=== PATIENT | female | born 1955 ===

== ENCOUNTER 2016-12-09 16:38 | Observation (INO) | payer SELFPAY ==
[2016-12-09 17:12] VITALS: RESP 16
[2016-12-09] MEDS ORDERED: Sodium Chloride 0.9% 1,000 ML IV STA (17:47)
[2016-12-09] MEDS ORDERED: Iohexol 240 (50 ml) PO ONE (17:58)
--- NOTE | 2016-12-09 18:10 | ED PDOC ---
HPI: Abdomen Time Seen by Provider: 12/09/16 17:45 Chief Complaint (Nursing): GI Problem Chief Complaint (Provider): GI Problem History Per: Patient History/Exam Limitations: no limitations Onset/Duration Of Symptoms: Days (x2 weeks ) Outside of [place] travel?: Yes Other Location:: [place] Current Symptoms Are (Timing): Still Present Associated Symptoms: Vomiting, Diarrhea Additional Complaint(s): Sravani Delgadillo is a 61 year old female, with a past medical history of hypertension and diabetes, who presents to the emergency department complaining of vomit and diarrhea onset for 2 weeks. She reports fever, chills, diarrhea, lightheadedness, and decreased appetite. Patient reports symptoms began on November 24 while she was in [place]. She saw a doctor there who gave her a shot that alleviated the symptoms except for an intermittent abdominal distension. She returned from [place] last night, however her nausea and diarrhea began developing again today. She states several episodes of non bloody vomit, and watery non bloody diarrhea. PMD: None provided Past Medical History Reviewed: Historical Data, Nursing Documentation, Vital Signs Vital Signs: Last Vital Signs Temp 98.4 F 12/10/16 00:33 Pulse 77 12/10/16 00:33 Resp 16 12/10/16 00:33 BP 102/65 12/10/16 00:33 Pulse Ox 95 12/10/16 00:33 - Medical History PMH: Diabetes, HTN - Surgical History Surgical History: Cholecystectomy, (x2) - Family History Family History: States: Diabetes, Hypertension - Social History Current smoker - smoking cessation education provided: No Alcohol: Occasional Drugs: Denies - Home Medications Home Medications: Ambulatory Orders Medication Instructions Recorded Ciprofloxacin HCl [Cipro] 500 mg PO BID #20 tab 12/10/16 Dicyclomine [Bentyl] 20 mg PO BID PRN #30 tab 12/10/16 Saccharomyces Boulardi [Florastor] 500 mg PO BID #28 cap 12/10/16 metroNIDAZOLE [Flagyl] 500 mg PO TID #30 tab 12/10/16 - Allergies Allergies/Adverse Reactions: Allergies Allergy/AdvReac Type Severity Reaction Status Date / Time No Known Allergies Allergy Verified 12/09/16 17:09 Review of Systems ROS Statement: Except As Marked, All Systems Reviewed And Found Negative Constitutional: Positive for: Fever, Chills Cardiovascular: Positive for: Light Headedness Gastrointestinal: Positive for: Vomiting (non bloody), Abdominal Pain ( intermittent distension, cramping diffused), Diarrhea (watery and non bloody) Physical Exam - Reviewed Nursing Documentation Reviewed: Yes Vital Signs Reviewed: Yes - Physical Exam Appears: Positive for: Non-toxic, In Acute Distress Head Exam: Positive for: ATRAUMATIC, NORMOCEPHALIC Skin: Positive for: Warm, Dry Eye Exam: Positive for: EOMI, PERRL ENT: Positive for: Other (tacky muc memb). Negative for: Pharyngeal Erythema, Tonsillar Exudate Neck: Positive for: Painless ROM, Supple Cardiovascular/Chest: Positive for: Regular Rate, Rhythm, Chest Non Tender. Negative for: Murmur Respiratory: Positive for: Normal Breath Sounds. Negative for: Wheezing Gastrointestinal/Abdominal: Positive for: Bowel Sounds, Soft, Tenderness ( diffuse). Negative for: Mass, Distended, Guarding, Rebound Back: Positive for: Normal Inspection. Negative for: Decreased ROM Extremity: Positive for: Normal ROM. Negative for: Deformity Lymphatic: Negative for: Adenopathy Neurologic/Psych: Positive for: Alert. Negative for: Motor/Sensory Deficits - Laboratory Results Result Diagrams: 12/09/16 19:12 12/09/16 19:12 - ECG O2 Sat by Pulse Oximetry: 100 Medical Decision Making Medical Decision Making: Initial Impression: Abdominal Pain differential Gastroenteritis, colitis, obstruction, electrolyte anormality Initial Plan: --Abd Pelvis PO & IV Contrast [CT] --Comp Metabolic Panel --Lact Acid, Plasma --Lipase --Urine Dipstick --CBC w/ differential --Pepcid 20 mg IVP --Omnipaque 50 ml PO --Toradol 15 mg IV --NS IV 1000 ml at 1000mls/hr --Zofran Inj 8 mg IV --Ova and parasite --Stool culture --IV insertion --Glucose, Blood, POC --reevaluation Scribe Attestation: Documented by Pravin Mclaughlin, acting as a scribe for Angelica Watson MD. Provider Scribe Attestation: All medical record entries made by the Scribe were at my direction and personally dictated by me. I have reviewed the chart and agree that the record accurately reflects my personal performance of the history, physical exam, medical decision making, and the department course for this patient. I have also personally directed, reviewed, and agree with the discharge instructions and disposition. ED OBSERVATION - Observation admission statement Patient is being placed in observation because:: Time intensive workup and serial abdominal exams - Goals of Observation Goals of observation are:: Workup for possible emergently significant pathology and initiation of treatment and symptomatic relief. - Progress Note Progress Note: 2100 labs demonstrated elevated WBC and dehydration. IVF continued and IV antibiotics ordered. Stable pending CT [address] result pending. 2400 EXAM: CT Abdomen and Pelvis With Intravenous Contrast CLINICAL HISTORY: 61 years old, female; Pain and signs and symptoms; Vomiting and other: Diarrhea ; Abdominal pain; Generalized; Prior surgery; Surgery date: 6+ months; Surgery type: Gb removed. 2 c-sections; Additional info: Abd pain vomiting diarrhea TECHNIQUE: Axial computed tomography images of the abdomen and pelvis with intravenous contrast. This CT exam was performed using one or more of the following dose reduction techniques : automated exposure control, adjustment of the mA and/or kV according to patient size, and/ or use of iterative reconstruction technique. Coronal and sagittal reformatted images were created and reviewed. CONTRAST: 90 mL of [id number] administered intravenously. COMPARISON: No relevant prior studies available. FINDINGS: Lower thorax: Minimal atelectasis. ABDOMEN: Liver: Fatty infiltration. Gallbladder and bile ducts: Cholecystectomy. No ductal dilation. Pancreas: No ductal dilation. No mass. Spleen: No splenomegaly. Adrenals: No mass. Kidneys and ureters: No mass. No hydronephrosis. Stomach and bowel: Apparent mild mural/fold thickening of few jejunal loops. No associated inflammatory stranding. No obstruction. Appendix: Normal caliber. No inflammation. PELVIS: Bladder: Unremarkable. Reproductive: Unremarkable as visualized. ABDOMEN and PELVIS: Intraperitoneal space: No significant fluid collection. No free air. Bones/joints: No acute fracture. Soft tissues: Unremarkable. Vasculature: Circumaortic LEFT renal vein. No aneurysm. Lymph nodes: No pathologically enlarged lymph nodes. IMPRESSION: 1. Possible mild enteritis. Clinical correlation is needed. 2. Incidental/non-acute findings are described above. Thank you for allowing us to participate in the care of your patient. Dictated and Authenticated by: Yohannes Carmona MD 12/10/2016 12:11 AM Eastern Time ([place] & [place]) DW findings w pt who feels better and is eager to go home. DW pt plan of care. Rx mihaela jackson, sheldon wetzel florastor F/u [facility] Disposition - Clinical Impression Clinical Impression: Gastroenteritis Counseled Patient/Family Regarding: Studies Performed, Diagnosis, Need For Followup, Rx Given - Disposition Disposition: Routine/Home Disposition Time: 18:00 Condition: IMPROVED
[2016-12-09 19:17] LABS: BASO % 0.3 % (0.0-2.0); EOS % 0.3 % (0.0-4.0); HEMOGLOBIN 13.3 g/dL (12.0-16.0); LYMPH # 0.9 K/uL (1.0-4.3); LYMPH % 7.6 % (20.0-40.0); MEAN CELL VOLUME 87.1 fl (81.0-99.0); MEAN CORPUSCULAR HEMOGLOBIN 28.7 pg (27.0-31.0); MEAN CORPUSCULAR HGB CONC 32.9 g/dL (33.0-37.0); MEAN PLATELET VOLUME 9.1 fl (7.2-11.7); MONO # 0.5 K/uL (0.0-0.8); MONO % 3.9 % (0.0-10.0); NEUT # 10.7 K/uL (1.8-7.0); NEUT % 87.9 % (50.0-75.0); PLATELET COUNT 299 K/uL (130-400); RBC 4.65 Mil/uL (3.80-5.20); RED CELL DISTRIBUTION WIDTH 12.9 % (11.5-14.5); WHITE BLOOD COUNT 12.2 K/uL (4.8-10.8)
[2016-12-09 19:30] LABS: ALB/GLOB RATIO 1.4 (1.0-2.1); ALBUMIN 4.1 g/dL (3.5-5.0); ALT/SGPT 52 U/L (9-52); AST/SGOT 25 U/L (14-36); BLOOD UREA NITROGEN 14 mg/dl (7-17); GFR AFRICAN-AMERICAN > 60; GFR NON-AFRICAN AMERICAN > 60; LIPASE 65 U/L (23-300)
[2016-12-09] MEDS ORDERED: metroNIDAZOLE 500mg/100ml NS 100 ML IV STA (19:30)
[2016-12-09] MEDS ORDERED: Ciprofloxacin 400mg/200ml D5W 400 MG/200 ML BAG IV STA (19:30)
[2016-12-09 20:34] LABS: ACANTHOCYTES SLIGHT; HYPOCHROMIC SLIGHT; LARGE PLATELETS PRESENT; LYMPHOCYTE 8 % (20-50); MONOCYTE 1 % (0-10); MYELOCYTE 1 % (0-0); NEUTROPHIL 90 % (42-75); PLATELET ESTIMATE NORMAL (NORMAL); STOMATOCYTES SLIGHT; TOTAL CELLS COUNTED 100
[2016-12-09] MEDS ORDERED: Iohexol 240 (50 ml) ONE (20:48)
[2016-12-09] MEDS ORDERED: Ciprofloxacin 400mg/200ml D5W 400 MG/200 ML BAG IVPB ONE (20:51)
[2016-12-09] MEDS ORDERED: metroNIDAZOLE 500mg/100ml NS 100 ML IVPB ONE (20:51)
[2016-12-09] MEDS ORDERED: Sodium Chloride 0.9% 50 ML IV ONE (22:44)
[2016-12-09] MEDS ORDERED: Iohexol 300 100 ML IJ ONE (22:44)
--- NOTE | 2016-12-10 00:11 | CT ---
EXAM: CT Abdomen and Pelvis With Intravenous Contrast CLINICAL HISTORY: 61 years old, female; Pain and signs and symptoms; Vomiting and other: Diarrhea; Abdominal pain; Generalized; Prior surgery; Surgery date: 6+ months; Surgery type: Gb removed. 2 c-sections; Additional info: Abd pain vomiting diarrhea TECHNIQUE: Axial computed tomography images of the abdomen and pelvis with intravenous contrast. This CT exam was performed using one or more of the following dose reduction techniques: automated exposure control, adjustment of the mA and/or kV according to patient size, and/or use of iterative reconstruction technique. Coronal and sagittal reformatted images were created and reviewed. CONTRAST: 90 mL of [id number] administered intravenously. COMPARISON: No relevant prior studies available. FINDINGS: Lower thorax: Minimal atelectasis. ABDOMEN: Liver: Fatty infiltration. Gallbladder and bile ducts: Cholecystectomy. No ductal dilation. Pancreas: No ductal dilation. No mass. Spleen: No splenomegaly. Adrenals: No mass. Kidneys and ureters: No mass. No hydronephrosis. Stomach and bowel: Apparent mild mural/fold thickening of few jejunal loops. No associated inflammatory stranding. No obstruction. Appendix: Normal caliber. No inflammation. PELVIS: Bladder: Unremarkable. Reproductive: Unremarkable as visualized. ABDOMEN and PELVIS: Intraperitoneal space: No significant fluid collection. No free air. Bones/joints: No acute fracture. Soft tissues: Unremarkable. Vasculature: Circumaortic LEFT renal vein. No aneurysm. Lymph nodes: No pathologically enlarged lymph nodes. IMPRESSION: 1. Possible mild enteritis. Clinical correlation is needed. 2. Incidental/non-acute findings are described above.
[2016-12-10 00:33] VITALS: BP 102/65; PULSE 77; TEMP 98.4
[2016-12-10 15:28] VITALS: O2SAT 100
== END 2016-12-10 00:22 | disposition home or self-care (01) ==
LOC: H.ER 16:38 → H.EROBSV 18:00
PROVIDERS: ADMIT Emergency Medicine; ATTEND Emergency Medicine
DX: K52.9 Noninfective gastroenteritis and colitis, unspecified (principal); E11.9 Type 2 diabetes mellitus without complications; I10 Essential (primary) hypertension

== ENCOUNTER 2017-03-24 09:12 | Day surgery (SDC) | payer SELFPAY ==
[2017-03-24] MEDS ORDERED: Lactated Ringer's 1,000 ML IV ONE (09:41)
[2017-03-24] MEDS ORDERED: Lidocaine 2% MPF (5 ml) Inj ONE (11:09)
[2017-03-24] MEDS ORDERED: Propofol 10 mg/ml Inj (20 ML) ONE (11:09)
[2017-03-24 11:45] VITALS: TEMP 98
[2017-03-24 12:01] VITALS: BP 117/67; PULSE 74; RESP 11; O2SAT 100
== END 2017-03-24 12:02 | disposition home or self-care (01) ==
LOC: H.ENDO 09:12
PROVIDERS: ATTEND Internal Medicine Gastroenterology
DX: Z12.11 Encounter for screening for malignant neoplasm of colon (principal); E11.9 Type 2 diabetes mellitus without complications; E78.5 Hyperlipidemia, unspecified; I10 Essential (primary) hypertension; K64.8 Other hemorrhoids; K44.9 Diaphragmatic hernia without obstruction or gangrene; K29.50 Unspecified chronic gastritis without bleeding; R10.13 Epigastric pain; K29.70 Gastritis, unspecified, without bleeding
CPT/HCPCS: 43239; 45378; 88305; J2704; J3010; J7120

== ENCOUNTER 2017-09-04 14:09 | Emergency (ER) | payer SELFPAY ==
[2017-09-04 14:44] VITALS: BP 145/76; PULSE 80; RESP 16; TEMP 97.9; O2SAT 100
[2017-09-04] MEDS ORDERED: Amoxicillin-Clav 500-125 mg Tab PO STA (15:47)
[2017-09-04] MEDS ORDERED: Amoxicillin-Clav 875-125 mg Tab PO ONE (16:04)
--- NOTE | 2017-09-04 17:22 | ED PDOC ---
HPI: Skin/Bite Injury Time Seen by Provider: 09/04/17 15:24 Chief Complaint (Nursing): Bite Chief Complaint (Provider): Cat Bite History Per: Patient History/Exam Limitations: no limitations Onset/Duration Of Symptoms: Days (x 2) Current Symptoms Are (Timing): Still Present Quality Of Symptoms: Painful Additional Complaint(s): 62 year old female presents to the ED for evaluation of a cat bite that occurred last night. States that the cat belonged to her neighbor, who has moved , however the cat stayed behind and now lives in her backyard for a few months. Patient reports she was bit on her right middle finger when trying to give the cat medicine. She is unsure about the cat's vaccinations. Patient states that her tetanus vaccinations are up to date. Denies numbness, decreased range of motion, redness, swelling, discharge, severe pain. PMD; Dr. Raúl Saucedo MD Past Medical History Reviewed: Historical Data, Nursing Documentation, Vital Signs Vital Signs: Last Vital Signs Temp 97.9 F 09/04/17 14:39 Pulse 80 09/04/17 14:39 Resp 16 09/04/17 14:39 BP 145/76 09/04/17 14:39 Pulse Ox 100 09/04/17 17:36 - Medical History PMH: Diabetes, HTN, Hypercholesterolemia - Surgical History Surgical History: Cholecystectomy, (x2) - Family History Family History: States: Diabetes, Hypertension - Home Medications Home Medications: Ambulatory Orders Medication Instructions Recorded Amoxicillin/Potassium Clav 1 each PO TID #15 tablet 09/04/17 [Augmentin 500-125 Tablet] - Allergies Allergies/Adverse Reactions: Allergies Allergy/AdvReac Type Severity Reaction Status Date / Time No Known Allergies Allergy Verified 09/04/17 14:39 Review of Systems ROS Statement: Except As Marked, All Systems Reviewed And Found Negative Musculoskeletal: Positive for: Hand Pain (laceration to finger ) Physical Exam - Reviewed Nursing Documentation Reviewed: Yes Vital Signs Reviewed: Yes - Physical Exam Comments: GENERAL APPEARANCE: Patient is awake, alert, oriented x 3, in no acute distress. SKIN: Warm, dry; (-) cyanosis. FINGER: 1 cm superficial healing laceration to dorsal distal aspect of right third digit, (+) full ROM (-) tenderness, (-) swelling, (-) ecchymosis, (-) deformity, (-) d/c, (-) distal neurovascular deficit. NEURO AND PSYCH: Mental status as above. - ECG O2 Sat by Pulse Oximetry: 100 (RA) Pulse Ox Interpretation: Normal Medical Decision Making Medical Decision Making: Time: 15:24 Impression: right finger laceration Initial Plan: --Amoxicillin 1 tab PO Patient was encouraged and instructed to maintain proper wound care. She was advised to notify animal control due to cat living in backyard. She does not need Rabies vaccine because cat is living in her backyard. Advised to follow up with primary care physician in 1-2 days without fail. Advised to take medication as prescribed. Return to the emergency room at any time for any new or worsening symptoms. Patient states he/she fully agrees with and understands discharge instructions. States that he/she agrees with the plan and disposition. Verbalized and repeated discharge instructions and plan. I have given the patient opportunity to ask any additional questions. Scribe Attestation: Documented by Rachel Garg acting as a scribe for Leda Benavidez PA-C MD Scribe Attestation: All medical record entries made by the Scribe were at my direction and personally dictated by me. I have reviewed the chart and agree that the record accurately reflects my personal performance of the history, physical exam, medical decision making, and the department course for this patient. I have also personally directed, reviewed, and agree with the discharge instructions and disposition. Disposition - Clinical Impression Clinical Impression: Cat bite - Patient ED Disposition Is Patient to be Admitted: No Counseled Patient/Family Regarding: Diagnosis, Need For Followup, Rx Given - Disposition Disposition: Routine/Home Disposition Time: 15:49 Condition: STABLE Additional Instructions: Thank you for letting us take care of you today. You were treated for cat bite. The emergency medical care you received today was directed at your acute symptoms. If you were prescribed any medication, please fill it and take as directed. It may take several days for your symptoms to resolve. Return to the Emergency Department if your symptoms worsen, do not improve, or if you have any other problems. Please contact your doctor in 2 days for re-evaluation and follow up. Bring any paperwork you were given at discharge with you along with any medications you are taking to your follow up visit. Our treatment cannot replace ongoing medical care by a primary care provider (PCP) outside of the emergency department. Thank you for allowing the [facility] team to be part of your care today. Prescriptions: Amoxicillin/Potassium Clav [Augmentin 500-125 Tablet] 1 each PO TID #15 tablet Instructions: Animal Bites (DC) Forms: [employer] (Czech), [facility] ED School/Work Excuse - PA / [employer] SUPERINTENDENT / Resident Statement MD/DO has reviewed & agrees with the documentation as recorded.
== END 2017-09-04 16:26 | disposition home or self-care (01) ==
LOC: H.ER 14:09
DX: S61.252A Open bite of right middle finger without damage to nail, initial encounter (principal); W55.01XA Bitten by cat, initial encounter; E11.9 Type 2 diabetes mellitus without complications; E78.00 Pure hypercholesterolemia, unspecified; I10 Essential (primary) hypertension

== ENCOUNTER 2018-02-15 12:15 | Emergency (ER) | payer SELFPAY ==
[2018-02-15 12:24] VITALS: BP 144/75; PULSE 84; RESP 18; TEMP 98; O2SAT 98
--- NOTE | 2018-02-15 14:42 | ED PDOC ---
Upper Extremity Pain/Injury Chief Complaint (Provider): Neck Pain History Per: Patient History/Exam Limitations: no limitations Onset/Duration Of Symptoms: Days (x3) Current Symptoms Are (Timing): Still Present Additional Complaint(s): 63 year old female presents to the ED for evaluation of left sided paraspinal cervical pain which gradually developed over the last three days worse with movement. 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 Reports taking Aleve without relief, last dose 0700. Otherwise denies headache, vision changes, light headedness, thoracic or lumbar pain, shortness of breath, chest pain, numbness, weakness, paresthesias, sore throat, and ear pain. PMD: none provided <Melisa Dan - Last Filed: 02/17/18 00:01> <Rosa Adkins - Last Filed: 02/17/18 17:20> Time Seen by Provider: 02/15/18 13:11 Chief Complaint (Nursing): Upper Extremity Problem/Injury Supervising Attending Note - Attestation: I have personally seen and examined this patient.: No I have reviewed all pertinent clinical information: Yes <Rosa Adkins - Last Filed: 02/17/18 17:20> Past Medical History Reviewed: Historical Data, Nursing Documentation, Vital Signs Vital Signs: Last Vital Signs Temp 98 F 02/15/18 12:22 Pulse 84 02/15/18 12:22 Resp 18 02/15/18 12:22 BP 144/75 02/15/18 12:22 Pulse Ox 98 02/15/18 12:22 - Medical History PMH: Diabetes, HTN, Hypercholesterolemia - Surgical History Surgical History: Cholecystectomy, (x2) - Family History Family History: States: Diabetes, Hypertension - Social History Current smoker - smoking cessation education provided: No Alcohol: None Drugs: Denies <Melisa Dan - Last Filed: 02/17/18 00:01> Vital Signs: Last Vital Signs Temp 98 F 02/15/18 12:22 Pulse 84 02/15/18 12:22 Resp 18 02/15/18 12:22 BP 144/75 02/15/18 12:22 Pulse Ox 98 02/17/18 00:01 <Rosa Adkins - Last Filed: 02/17/18 17:20> - Home Medications Home Medications: Ambulatory Orders Medication Instructions Recorded Amoxicillin/Potassium Clav 1 each PO TID #15 tablet 09/04/17 [Augmentin 500-125 Tablet] Cyclobenzaprine [Flexeril] 5 mg PO Q8H PRN #21 tab 02/15/18 - Allergies Allergies/Adverse Reactions: Allergies Allergy/AdvReac Type Severity Reaction Status Date / Time No Known Allergies Allergy Verified 09/04/17 14:39 Review of Systems ROS Statement: Except As Marked, All Systems Reviewed And Found Negative Eyes: Negative for: Vision Change ENT: Negative for: Ear Pain, Throat Pain Cardiovascular: Negative for: Chest Pain, Light Headedness Respiratory: Negative for: Shortness of Breath Musculoskeletal: Positive for: Neck Pain (left sided para spinal cervical pain, worse with movement). Negative for: Other (thoracic or lumbar pain) Neurological: Negative for: Headache, Other (paresthesias) <Melisa Dan - Last Filed: 02/17/18 00:01> Physical Exam - Reviewed Nursing Documentation Reviewed: Yes Vital Signs Reviewed: Yes - Physical Exam Appears: Positive for: No Acute Distress Head Exam: Positive for: ATRAUMATIC, NORMOCEPHALIC Skin: Positive for: Normal Color, Warm, Dry Eye Exam: Positive for: Normal appearance, EOMI, PERRL ENT: Positive for: Normal ENT Inspection Neck: Positive for: Normal, Supple (but tender to left sided cerival paraspinal area and over left trapezius) Cardiovascular/Chest: Positive for: Regular Rate, Rhythm Respiratory: Positive for: Normal Breath Sounds. Negative for: Accessory Muscle Use, Respiratory Distress Back: Positive for: Normal Inspection Neurologic/Psych: Positive for: Alert, Oriented (x3). Negative for: Motor/Sensory Deficits <Melisa Dan - Last Filed: 02/17/18 00:01> - ECG O2 Sat by Pulse Oximetry: 98 (RA) Pulse Ox Interpretation: Normal <Melisa Dan - Last Filed: 02/17/18 00:01> Medical Decision Making Medical Decision Making: Time: 1311 Initial Impression: muscle strain Initial Plan: --Flexeril 10mg PO --Tylenol 650mg PO 1442 Pt to be d/c with flexeril script and advised to follow up with PMD or return if symptoms worsen. Instructed to continue with the Aleve in the morning and apply heat to the neck. Scribe Attestation: Documented by Vicki Cunningham, acting as a scribe for Melisa Dan PA-C. Provider Scribe Attestation: All medical record entries made by the Scribe were at my direction and personally dictated by me. I have reviewed the chart and agree that the record accurately reflects my personal performance of the history, physical exam, medical decision making, and the department course for this patient. I have also personally directed, reviewed, and agree with the discharge instructions and disposition. <Melisa Dan - Last Filed: 02/17/18 00:01> Disposition - Patient ED Disposition Is Patient to be Admitted: No - Disposition Disposition: Routine/Home Disposition Time: 14:00 <Melisa Dan - Last Filed: 02/17/18 00:01> <Rosa Adkins - Last Filed: 02/17/18 17:20> - Clinical Impression Clinical Impression: Muscle spasm - Disposition Condition: IMPROVED Additional Instructions: No strenuous activity until symptoms resolve Take flexeril every 8 hours as needed for pain continue to take alieve every morning as needed for pain followup with primary doctor within 2 days return to Ed if symptoms persist or worsen Prescriptions: Cyclobenzaprine [Flexeril] 5 mg PO Q8H PRN #21 tab PRN Reason: mucle spasm Instructions: Muscle Spasms (DC) Forms: [employer] (E[place]ian)
== END 2018-02-15 14:42 | disposition home or self-care (01) ==
LOC: H.ER 12:15
DX: M62.830 Muscle spasm of back (principal); E11.9 Type 2 diabetes mellitus without complications; E78.00 Pure hypercholesterolemia, unspecified; I10 Essential (primary) hypertension